=== PATIENT | female | born 1940 | race Caucasian/White ===

== ENCOUNTER 2016-10-25 11:03 | Observation (INO) | payer MEDICARE, OTHER ==
[~2016-10-25] VITALS: Ht 160 cm; Wt 116.1 kg
[2016-10-25] MEDS ORDERED: PREDNISONE 5MG5 MG PO (11:17)
[2016-10-25] MEDS ORDERED: LASIX 40MG TABL40 MG PO ×2 (11:18→16:27)
[2016-10-25] MEDS ORDERED: MONOKET10 MG PO (11:18)
[2016-10-25] MEDS ORDERED: NORCO 325 MG-101 TAB PO (11:19)
[2016-10-25] MEDS ORDERED: CYMBALTA 60MG60 MG PO (11:19)
[2016-10-25] MEDS ORDERED: ZYLOPRIM 100MG100 MG PO (11:19)
[2016-10-25 11:53] LABS: ADJUSTED CALCIUM 9.4 mg/dL (8.4-10.2); ALANINE AMINOTRANSFERASE 40 U/L (9-52); ALBUMIN 3.7 gm/dL (3.5-5.0); ALKALINE PHOSPHATASE 85 U/L (50-136); ANION GAP 8 mmol/L (7-16); BILIRUBIN,TOTAL 0.7 mg/dL (0.0-1.0); BLOOD UREA NITROGEN 24 mg/dL (7-17); CALCIUM 9.2 mg/dL (8.4-10.2); CARBON DIOXIDE 31 mmol/L (22-30); CHLORIDE 97 mmol/L (98-107); CREATININE, serum 1.07 mg/dL (0.52-1.25); GLUCOSE 107 mg/dL (74-106); POTASSIUM 4.6 mmol/L (3.4-5.0); SODIUM 136 mmol/L (137-145); TOTAL PROTEIN 6.6 gm/dL (6.4-8.2)
[2016-10-25 12:00] LABS: BASO # 0.1 (0.0-0.2); BASO % 0.6 % (0.0-2.0); EOS # 0.1 (0.0-0.7); EOS % 0.6 % (0-4.0); GRAN # 11.2 (1.4-6.5); GRAN % 82.2 % (42.2-75.2); HEMATOCRIT 41.4 % (37.0-47.0); HEMOGLOBIN 13.9 g/dl (12.5-16.0); LYMPH # 1.3 (1.2-3.4); LYMPH % 9.7 % (20.0-51.0); MEAN CELL VOLUME 95 fl (80.0-100.0); MEAN CORPUSCULAR HEMOGLOBIN 32 pg (27.0-31.0); MEAN CORPUSCULAR HGB CONC 34 g/dl (33.0-37.0); MEAN PLATELET VOLUME 9.1 fl (7.4-10.4); MONO # 0.8 (0.1-0.6); PLATELET COUNT 392 K/mm3 (130-400); RED BLOOD COUNT 4.38 M/mm3 (4.10-5.30); REDCELL DISTRIBUTION WIDTH-CV 14.6 % (11.5-14.5); WHITE BLOOD COUNT 13.6 K/mm3 (4.8-10.8)
[2016-10-25 12:08] LABS: TROPONIN-I < 0.012 ng/mL (0.000-0.034)
[2016-10-25 12:30] VITALS: BP 153/77; PULSE 75
[2016-10-25 13:55] VITALS: BP 109/78; PULSE 75; TEMP 97.5
[2016-10-25 15:49] VITALS: BP 145/75; PULSE 77; TEMP 96.1
[2016-10-25] MEDS ORDERED: XANAX .25M0.25 MG/TA PO (16:28)
[2016-10-25] MEDS ORDERED: FLEXERIL 1010 MG/TAB PO (16:28)
[2016-10-25 18:33] LABS: PH 6 (5-8); SQUAMOUS EPITHELIAL 0-2 /hpf; URINE APPEARANCE Clear; URINE BACTERIA None Seen /hpf; URINE BILIRUBIN Negative (NEGATIVE); URINE BLOOD Negative (NEGATIVE); URINE COLOR Yellow; URINE GLUCOSE Negative (NEGATIVE); URINE KETONE Negative (NEGATIVE); URINE RBC None Seen /hpf; URINE UROBILINOGEN Negative (NEGATIVE)
[2016-10-25 19:55] VITALS: BP 138/78; PULSE 89; TEMP 97.7
[2016-10-25 22:56] VITALS: BP 148/80; PULSE 91; TEMP 98.5
[2016-10-26 03:30] VITALS: BP 137/61; PULSE 80; TEMP 98.3
[2016-10-26 07:53] VITALS: BP 147/77; PULSE 94; TEMP 98.4
[2016-10-26] MEDS ORDERED: ALPHAGAN OPHTH D5 ML OU (08:19)
[2016-10-26 09:22] LABS: BASO # 0.1 (0.0-0.2); BASO % 0.5 % (0.0-2.0); EOS # 0.3 (0.0-0.7); GRAN # 9.3 (1.4-6.5); GRAN % 72.6 % (42.2-75.2); HEMATOCRIT 37.7 % (37.0-47.0); HEMOGLOBIN 12.4 g/dl (12.5-16.0); LYMPH # 2.2 (1.2-3.4); MEAN CELL VOLUME 96 fl (80.0-100.0); MEAN CORPUSCULAR HEMOGLOBIN 32 pg (27.0-31.0); MEAN CORPUSCULAR HGB CONC 33 g/dl (33.0-37.0); MEAN PLATELET VOLUME 9.2 fl (7.4-10.4); MONO # 0.9 (0.1-0.6); MONO % 7.2 % (1.7-9.3); PLATELET COUNT 370 K/mm3 (130-400); RED BLOOD COUNT 3.94 M/mm3 (4.10-5.30); REDCELL DISTRIBUTION WIDTH-CV 14.5 % (11.5-14.5); WHITE BLOOD COUNT 12.8 K/mm3 (4.8-10.8)
[2016-10-26 09:29] LABS: CALCIUM 8.6 mg/dL (8.4-10.2); CREATININE, serum 0.92 mg/dL (0.52-1.25); POTASSIUM 3.7 mmol/L (3.4-5.0)
[2016-10-26 11:13] VITALS: BP 145/86; PULSE 92; TEMP 97.9
[2016-10-26] MEDS ORDERED: ANTIVERT 25MG25 MG PO (11:13)
[2016-10-26] MEDS ORDERED: PHENERGAN 25 TA25 MG PO (11:13)
== END 2016-10-26 14:09 | disposition home or self-care (01) ==
LOC: COL.ER 11:03 → MEDICAL 12:46
PROVIDERS: Emergency Medicine; Physician Assistant
DX: H81.10 Benign paroxysmal vertigo, unspecified ear (principal); D72.829 Elevated white blood cell count, unspecified; I10 Essential (primary) hypertension; R73.03 Prediabetes; G62.9 Polyneuropathy, unspecified; R60.0 Localized edema; M35.3 Polymyalgia rheumatica; R11.2 Nausea with vomiting, unspecified; F32.9 Major depressive disorder, single episode, unspecified; M10.9 Gout, unspecified; R53.1 Weakness; Z79.899 Other long term (current) drug therapy; H40.9 Unspecified glaucoma; Z79.52 Long term (current) use of systemic steroids; Z96.653 Presence of artificial knee joint, bilateral; Z87.891 Personal history of nicotine dependence
CPT/HCPCS: G0378; G8978-GP; G8979-GP; J1650; J2060; J2405; J2550; J7030; J7512

== ENCOUNTER → 2016-10-25 | Outpatient (CLI) | payer MEDICARE, OTHER ==
[~2016-10-25] MED LIST: ALPHAGAN OPHTH D5 ML OU; ANTIVERT 25MG25 MG PO; CYMBALTA 60MG60 MG PO; FLEXERIL 1010 MG/TAB PO; LASIX 40MG TABL40 MG PO; MONOKET10 MG PO; NORCO 325 MG-101 TAB PO; PHENERGAN 25 TA25 MG PO; PREDNISONE 5MG5 MG PO; XANAX .25M0.25 MG/TA PO; ZYLOPRIM 100MG100 MG PO
== END ==
LOC: COL.RAD 09:30
DX: D47.2 Monoclonal gammopathy (principal); M25.78 Osteophyte, vertebrae